=== PATIENT | female | born 1975 | race Hispanic/Latino ===

== ENCOUNTER 2017-05-15 14:25 | Inpatient (IN) | payer MEDICARE ==
[~2017-05-15 14:25] MED LIST: ISOVUE-370 76%-LOCM 1 ML ONE
[2017-05-15 15:04] LABS: #Lymphocytes 1.9 thou/uL (1.20-3.40); #Monocytes 1.1 thou/uL (0.11-0.59); #Neutrophils 10.9 thou/uL (1.40-6.50); %Basophils 0.3 % (0.0-1.0); %Eosinophils 0.2 % (0.0-10.0); %Lymphocytes 13.4 % (21.0-51.0); %Monocytes 8.2 % (0.0-10.0); Hematocrit 39.3 % (36.0-47.0); Mean Platelet Volume 7.7 fL (7.4-10.4); Red Blood Cell (RBC) Count 4.49 mill/uL (4.20-5.40)
[2017-05-15 15:25] LABS: ALT (SGPT) 98 U/L (8-55); AST (SGOT) 88 U/L (5-34); Alkaline Phosphatase 140 U/L (40-150); Anion Gap 13 mmol/L (10-20); BUN (Urea Nitrogen) 9 mg/dL (7.0-18.7); Bilirubin, Total 0.6 mg/dL (0.2-1.2); Calc. Creatinine Clearance 0 mL/min (70-130); Carbon Dioxide 27 mmol/L (22-29); Chloride 96 mmol/L (98-107); Estimated GFR-MDRD 65; Globulin 5.1 g/dL (2.4-3.5); Lipase 5 U/L (8-78); Protein, Total 8.7 g/dL (6.0-8.3)
[2017-05-15 15:57] LABS: Bilirubin Negative (Negative); Blood, Urine Large (Negative); Glucose, Urine (Dipstick) Negative (Negative); Ketone, Urine Negative (Negative); Nitrite Negative (Negative); Protein, Urine (Dipstick) 100 mg/dL (Neg-Trace)
[2017-05-15 15:59] LABS: Bacteria/HPF 4+ HPF (None Seen); Hyaline Casts/LPF 4-6 HYALINE CAST LPF (0-3 Hyaline)
[2017-05-15] MEDS ORDERED: Acetaminophen 500 MG TAB ONE (16:12)
[2017-05-15 16:14] LABS: Lactic Acid - Sepsis 1.3 mmol/L (0.5-2.2)
[2017-05-15 16:15] LABS: Yeast-All Forms None Seen HPF (None Seen)
--- NOTE | 2017-05-15 16:26 | RAD ---
CHEST 1 VIEW: Date: 05/15/17 HISTORY: Urinary tract infection. Fever. FINDINGS: Cardiac silhouette is magnified by projection. Pulmonary vasculature is unremarkable. Mediastinum is midline. There is no confluent air space consolidation or evidence of pneumothorax. layaway clerk l victor manuel overlie the chest. IMPRESSION: No active cardiopulmonary abnormalities are demonstrated. POS: [facility]
--- NOTE | 2017-05-15 17:24 | CT ---
CT BRAIN WITHOUT CONTRAST: Indication: Headache, 42-year-old female. Comparison: 10-14-08 brain MRI. FINDINGS: Re-demonstration of reduced volume of posterior fossa contents, stable to prior exam. No ventriculome darwin or midline shift. There is no acute intracranial hemorrhage or mass effect. Mild mucosal thicken ing is seen within the paranasal sinuses. IMPRESSION: 1. No acute intracranial abnormalities. 2. 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 POS: [facility]
--- NOTE | 2017-05-15 17:59 | CT ---
CT ABDOMEN AND PELVIS WITH CONTRAST: Technique: Multiple axial tomograms were obtained of the abdomen and pelvis with IV enhancement. History: Abdominal pain. Fever. FINDINGS: Lung bases are clear. The liver, spleen, and pancreas are unremarkable. The liver does show low attenuation suggesting fatt y infiltration. Stomach and duodenum unremarkable. Adrenal glands are unremarkable. Review of the urinary tract reveals an edematous left kidney with slight decreased function in the le ft kidney. There is a small cyst superior left kidney measuring approximately 1.0 cm. There is no hyd ronephrosis. The left ureter is mildly prominent, but no evidence of ureteral calculus identified. Th e bladder is only mildly distended and is suboptimally evaluated. There is suggestion of mild bladder wall thickening. Pyelonephritis/cystitis should be considered. Close follow up is recommended. Recom mend correlation with urinalysis. The small bowel loops are normal. Colon is unremarkable. Appendix is unremarkable. Images through the pelvis show unremarkable uterus and adnexa. No evidence of retroperitoneal adenopa thy. There are nonspecific periaortic lymph nodes present. There is a small anterior abdominal wall hernia inferior to the umbilicus in the midline with an abdo candi wall defect in the anterior abdominal wall measuring 2.5 cm width. Mesenteric fat herniates thr ough this defect into the subcutaneous adipose. IMPRESSION: 1. The left kidney is abnormal. The left kidney appears slightly edematous with slight decreased func tion. No evidence of hydronephrosis or urinary tract calculus. There is question of bladder wall thic kening. Consider pyelonephritis and cystitis. Recommend close follow up and urologic consultation. 2. Evidence of a small anterior abdominal wall hernia. 3. Otherwise, no acute intraabdominal process. POS: [facility]
[2017-05-15] MEDS ORDERED: cefTRIAXone\\ROCEPHIN 2 GM in Sodium Chloride 0.9% 100 ML IVPB ONE (18:15)
--- NOTE | 2017-05-15 19:52 | PDOC.EVN ---
Event Note - Event Note Event Note: [id number] h&p dictated 1. Sepsis secondary to UTI 2. UTI 3. Abdominal pain + Nausea an dvomiting 4. H/O Seizures plan: see orders
[2017-05-15] MEDS ORDERED: Ondansetron HCl/PF 4 MG/2 ML Vial IVP PRN (20:08)
[2017-05-15] MEDS ORDERED: Potassium Chloride 20 MEQ TAB PO SCH (20:15)
[2017-05-15] MEDS: Acetaminophen 325 MG TAB PO PRN (21:26)
[2017-05-15] MEDS: Sodium Chloride 0.9% 1,000 ML IV SCH (21:27)
[2017-05-15] MEDS: Heparin 5,000 UNITS/ML VIAL SC SCH (21:27)
[2017-05-16] MEDS: Sodium Chloride 0.9% 1,000 ML IV SCH ×4 (00:44→20:22)
[2017-05-16] MEDS: Piperacillin/Tazobactam 3.375 GM in Sodium Chloride 0.9% 100 ML IVPB SCH ×5 (00:44→23:59)
[2017-05-16 01:49] VITALS: BMI 33.1
[2017-05-16 04:39] LABS: #Eosinphils 0.1 thou/uL (0.0-0.7); #Lymphocytes 1.6 thou/uL (1.20-3.40); #Monocytes 0.9 thou/uL (0.11-0.59); #Neutrophils 7.5 thou/uL (1.40-6.50); %Basophils 0.2 % (0.0-1.0); %Eosinophils 0.5 % (0.0-10.0); %Lymphocytes 15.5 % (21.0-51.0); %Monocytes 9.1 % (0.0-10.0); Hematocrit 32.9 % (36.0-47.0); Red Blood Cell (RBC) Count 3.73 mill/uL (4.20-5.40)
[2017-05-16 04:45] LABS: Anion Gap 8 mmol/L (10-20); BUN (Urea Nitrogen) 9 mg/dL (7.0-18.7); Calc. Creatinine Clearance 118 mL/min (70-130); Calcium 8.3 mg/dL (7.8-10.44); Carbon Dioxide 29 mmol/L (22-29); Chloride 105 mmol/L (98-107); Estimated GFR-MDRD 86
--- NOTE | 2017-05-16 05:40 | HP ---
DATE OF ADMISSION: 05/15/2017 CHIEF COMPLAINT: Abdominal pain, fever, chills, headache, body aches. HISTORY OF PRESENT ILLNESS: The patient is a 42-year-old female, started having abdominal pain in th e umbilical region, constant, /, currently 6/10, improves with some pain medication, associated wi th some nausea and vomiting also. Complains of fever, chills, headache and body aches for the past 2 days. Symptoms started on Monday. Symptoms persisted, so she came to the ER. Denies any dysuria. Denies any increased frequency of micturition. Denies any hematuria. Complains of intermittent diz ziness also with headache. Denies chest pain, denies any palpitations, denies any cough, denies sput um production. PAST MEDICAL HISTORY: Seizure disorder, hyperlipidemia. PAST SURGICAL HISTORY: . 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 SOCIAL HISTORY: Denies smoking, denies alcohol, denies any drugs. FAMILY HISTORY: Denies any heart problems. REVIEW OF SYSTEMS: Constitutional: Positive for fever, chills, headache. Eyes: Denies any vision problems. Ears: Denies any hearing loss. Neck: Denies any neck pain. Cardiovascular system: Den ies any chest pain. Denies any palpitations. Respiratory system: Denies any cough. Denies any spu jose production. Gastrointestinal: Positive for abdominal pain. Positive for nausea, vomiting. Business Unit Leader nial nerve system: Positive for dizziness. Psychiatric: Denies depression or anxiety. Integumenta ry: Denies any rash. Musculoskeletal: Denies any joint deformities. All other review of systems a re reviewed and are negative. PHYSICAL EXAMINATION: CONSTITUTIONAL/VITAL SIGNS: At the time of H&P performed, blood pressure is 110/70, pulse ox 97%, he art rate 78. GENERAL APPEARANCE: The patient appears comfortable. HEENT: Pupils are equal, round, and reactive light. Anterior nares patent. Nose normal. Ears norm al. Teeth intact. Tongue is moist. NECK: Supple, no JVD. CARDIOVASCULAR SYSTEM: S1, S2 present. Regular rate and rhythm. No murmurs, no rubs, no gallops. RESPIRATORY SYSTEM: No wheezing, no rhonchi. Breath sounds bilaterally. GASTROINTESTINAL: Abdomen is soft, nontender, no guarding, no organomegaly, no masses felt. MUSCULOSKELETAL: No edema. CRANIAL NERVE SYSTEM: Awake, follows commands. Strength intact, sensory intact. GENITOURINARY: No suprapubic tenderness, no flank tenderness. INTEGUMENTARY: No obvious rashes seen. PSYCHIATRIC: Mood is appropriate at this time. LABORATORY DATA: At the time of H&P performed urine specific gravity is 1.018, leukocyte esterase pr esent, greater than 50, numerous wbcs, 4+ bacteria. BMP showed sodium 133, potassium 3.6, chloride 9 6, CO2 of 27, BUN of 9, creatinine 0.95. White count 14, hemoglobin 12.9, platelet count is 238. CT abdomen and pelvis, positive left kidney is abnormal, appears edematous, need to rule out pyelonephr itis, small abdominal wall hernia. CT head, no acute disease seen. Positive for congenital va riant seen. IMPRESSION AND PLAN: The patient is a 42-year-old female. 1. Seizures. Continue antiepileptics. 2. Sepsis secondary to urinary tract infection. Plan to start the patient on broad spectrum antibio tics. Plan to monitor the patient closely. Plan to send urine culture and sensitivity and also bloo d cultures. We will follow the patient. 3. Urinary tract infection. Plan to start the patient on broad spectrum antibiotics. Plan to send urine culture and sensitivity. We will follow the patient. 4. History of hyperlipidemia. Continue home medications. 5. Abdominal pain, nausea, vomiting. P.r.n. pain medications, p.r.n. antiemetics. The case was discussed in detail with the patient.
[2017-05-16] MEDS ORDERED: FLU VACC QS2017-18 36 mo. & older 0.5 ML SYRINGE IM ONE (09:00)
[2017-05-16] MEDS: levETIRAcetam 500 MG TAB PO SCH ×2 (09:01→20:22)
[2017-05-16] MEDS: Heparin 5,000 UNITS/ML VIAL SC SCH ×3 (09:09→20:22)
--- NOTE | 2017-05-16 13:04 | PDOC.PN ---
- Subjective Encounter Start Date: 05/16/17 Encounter Start Time: 09:25 -: old records requested/rev Patient seen and examined. No new complaints. No overnight events - Objective MAR Reviewed: Yes Vital Signs & Weight: Vital Signs (12 hours) Temp Pulse Resp BP Pulse Ox 05/16/17 08:00 99.7 F H 81 16 103/68 96 05/16/17 03:22 98.7 F 82 20 96 I&O: 05/15/17 05/16/17 05/17/17 06:59 06:59 06:59 Intake Total 180 Balance 180 Result Diagrams: 05/16/17 04:08 05/16/17 04:08 Phys Exam - Physical Examination Constitutional: NAD HEENT: PERRLA, moist MMs, sclera anicteric Neck: no JVD, supple Respiratory: no wheezing, no rales, no rhonchi Cardiovascular: RRR, no significant murmur, no rub Gastrointestinal: soft, non-tender, no distention, positive bowel sounds Musculoskeletal: no edema, pulses present Neurological: non-focal, normal sensation Psychiatric: normal affect, A&O x 3 Skin: no rash, normal turgor Dx/Plan (1) Acute cystitis Code(s): N30.00 - ACUTE CYSTITIS WITHOUT HEMATURIA Status: Acute (2) Acute pyelonephritis Code(s): N10 - ACUTE PYELONEPHRITIS Status: Acute (3) Dehydration Code(s): E86.0 - DEHYDRATION Status: Acute (4) Sepsis Code(s): A41.9 - SEPSIS, UNSPECIFIED ORGANISM Status: Acute (5) Anemia, normocytic normochromic Code(s): D64.9 - ANEMIA, UNSPECIFIED Status: Chronic (6) Hypothyroidism Code(s): E03.9 - HYPOTHYROIDISM, UNSPECIFIED Status: Chronic (7) Obesity (BMI 30.0-34.9) Code(s): E66.9 - OBESITY, UNSPECIFIED Status: Chronic (8) Seizure disorder Code(s): G40.909 - EPILEPSY, UNSP, NOT INTRACTABLE, WITHOUT STATUS EPILEPTICUS Status: Chronic - Plan cont current plan of care, plan discussed w/ family, continue antibiotics * continue iv antibiotics as per below * continue IVF * medication reviewed as below * symptomatic treatment * follow culture * pt is improving. Review of Systems - Review of Systems ENT: negative: Ear Pain, Ear Discharge, Nose Pain, Nose Discharge, Nose Congestion, Mouth Pain, Mouth Swelling, Throat Pain, Throat Swelling, Other Respiratory: negative: Cough, Dry, Shortness of Breath, Hemoptysis, SOB with Excertion, Pleuritic Pain, Sputum, Wheezing Cardiovascular: negative: Chest Pain, Palpitations, Orthopnea, Paroxysmal Noc. Dyspnea, Edema, Light Headedness, Other Gastrointestinal: negative: Nausea, Vomiting, Abdominal Pain, Diarrhea, Constipation, Melena, Hematochezia, Other Genitourinary: negative: Dysuria, Frequency, Incontinence, Hematuria, Retention , Other Musculoskeletal: negative: Neck Pain, Shoulder Pain, Arm Pain, Back Pain, Hand Pain, Leg Pain, Foot Pain, Other Skin: negative: Rash, Lesions, Clarence, Bruising, Other - Medications/Allergies Allergies/Adverse Reactions: Allergies Allergy/AdvReac Type Severity Reaction Status Date / Time No Known Allergies Allergy Verified 05/15/17 21:35 Medications: Current Medications Acetaminophen (Tylenol) 650 mg PO Q4H PRN PRN Reason: Headache/Fever or Pain Last Admin: 05/15/17 21:26 Dose: 650 mg Heparin Sodium (Porcine) (Heparin) 5,000 units SC TID [facility] Last Admin: 05/16/17 09:09 Dose: 5,000 units Sodium Chloride (Normal Saline 0.9%) 1,000 mls @ 150 mls/hr IV .Q6H40M [facility] Last Admin: 05/16/17 09:04 Dose: 1,000 mls Piperacillin Sod/Tazobactam (Sod 3.375 gm/ Sodium Chloride) 100 mls @ 200 mls/ hr IVPB Q6HR [facility] Last Admin: 05/16/17 12:49 Dose: 100 mls Levofloxacin 500 mg/ Device 100 mls @ 100 mls/hr IVPB Q24HR [facility] Levetiracetam (Keppra) 500 mg PO BID [facility] Last Admin: 05/16/17 09:01 Dose: 500 mg Levothyroxine Sodium (Synthroid) 50 mcg PO 0600 [facility] Ondansetron HCl (Zofran) 4 mg IVP Q6H PRN PRN Reason: Nausea/Vomiting Sodium Chloride (Flush - Normal Saline) 10 ml IVF PRN PRN PRN Reason: Saline Flush
[2017-05-16] MEDS: Acetaminophen 325 MG TAB PO PRN (13:49)
--- NOTE | 2017-05-16 16:29 | CON ---
DATE OF CONSULTATION: 05/16/2017 REFERRING: Hospitalist for pyelonephritis. HISTORY OF PRESENT ILLNESS: Ms. Sanchez is a 42-year-old female, who presented to the emergency room on advice of her primary care physician as she had symptoms of myalgia, headaches, periumbilical abdominal discomfort. The patient states that she came back from [place], early April had symptoms of local cystitis, dysuria, urgency. This was not treated, subsequently due to systemic symptoms of myalgia, abdominal vague discomfort, presented to the emergency room. Family at bedside as patient is non-Belarusian speaking. History of fever at home of 101, 102, on presentation to the emergency room, no significant fever, currently she is 99.7. With IV antibiotics and fluid, she states that she is feeling significantly better with no nausea, vomiting, dysuria. She denies prior history of kidney stones, history of recurrent UTI denied. PAST MEDICAL HISTORY: Seizure disorder and hyperlipidemia. PAST SURGICAL HISTORY: . 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 REVIEW OF SYSTEMS: Ten point review of systems as above. PHYSICAL EXAMINATION: Currently, VITAL SIGNS: T-max is 99.7, 81, 16, 96, 103/68. HEENT: Grossly unremarkable. HEART: Regular rate. LUNGS: Clear. ABDOMEN: Obese, protuberant, nontender, nondistended. No CVA tenderness is appreciated. GENITOURINARY: Demonstrates no significant pelvic prolapse, no discharge, no masses appreciated. EXTREMITIES: No cyanosis, clubbing or edema. NEUROLOGIC: No gross focal deficits. PSYCHIATRIC: Appears to be appropriate. PERTINENT LABORATORY AND IMAGING DATA: 1. CT of the abdomen with contrast demonstrates left kidney is slightly edematous. There is no gross evidence of hydronephrosis, ureteral renal calculi , questionable bladder wall thickening consistent with pyelonephritis and cystitis. 2. Small anterior abdominal wall hernia. No other acute process. 3. Small incidental left upper pole renal cyst with no significant enhancement. PERTINENT LABORATORY DATA: White count on admission 14, currently is 10; hemoglobin 10, platelet 196, creatinine 0.74. LFTs are slightly elevated, most likely reactive, normal lactic acid of 1.3, blood culture is negative. Urinalysis 100 protein, large blood, moderate leukocytes, 7-10 rbcs, greater than 50 wbcs, 7-10 epithelial cells, 4+ bacteria, negative nitrites. I did call the lab myself demonstrating a urine culture is growing greater than 100, 000 CFUs of E. coli, sensitivity is yet pending. IMPRESSION/PLAN: Ms. Sanchez is a 42-year-old female, , with no prior history of urinary tract infection, pyelonephritis, presents with left pyelonephritis. She has significantly improved and clinical picture with fluids and IV antibiotics. I do recommend Levaquin adjunct until final sensitivity is finalized. If it is sensitive to quinolones, recommend Levaquin or ciprofloxacin for a course of a minimum of 2-3 weeks due to pyelonephritis. She is provided an elective with me in May, appointment in chart. Repeat imaging would be warranted if persistent fever despite appropriate antibiotic regimen greater than 48 hours. Discharge when sensitivity final with appropriate antibiotics. ERIN
[2017-05-17] MEDS ORDERED: Diabetic Tussin 200 MG/10 ML UDCUP PO PRN (01:06)
[2017-05-17] MEDS: Sodium Chloride 0.9% 1,000 ML IV SCH ×2 (04:44→07:49)
[2017-05-17] MEDS: Acetaminophen 325 MG TAB PO PRN (04:49)
[2017-05-17] MEDS: Piperacillin/Tazobactam 3.375 GM in Sodium Chloride 0.9% 100 ML IVPB SCH (05:00)
[2017-05-17] MEDS ORDERED: Levothyroxine Sodium 50 MCG TAB PO SCH (06:00)
[2017-05-17] MEDS: levETIRAcetam 500 MG TAB PO SCH (07:45)
[2017-05-17] MEDS: Heparin 5,000 UNITS/ML VIAL SC SCH (07:46)
[2017-05-17 08:01] VITALS: BP 92/60; TEMP 97.9
--- NOTE | 2017-05-17 12:38 | PDOC.PN ---
- Subjective Encounter Start Date: 05/17/17 Encounter Start Time: 10:00 Patient seen and examined. No new complaints. No overnight events - Objective MAR Reviewed: Yes Vital Signs & Weight: Vital Signs (12 hours) Temp Pulse Resp BP Pulse Ox 05/17/17 08:00 97.9 F 71 16 92/60 96 05/17/17 04:00 98.7 F 65 18 113/73 95 I&O: 05/16/17 05/17/17 05/18/17 06:59 06:59 06:59 Intake Total 2720 Balance 2720 Result Diagrams: 05/16/17 04:08 05/16/17 04:08 Phys Exam - Physical Examination Constitutional: NAD HEENT: PERRLA, moist MMs, sclera anicteric Neck: no JVD, supple Respiratory: no wheezing, no rales, no rhonchi Cardiovascular: RRR, no significant murmur, no rub Gastrointestinal: soft, non-tender, no distention, positive bowel sounds Musculoskeletal: no edema, pulses present Neurological: non-focal, normal sensation, moves all 4 limbs Lymphatic: no nodes Psychiatric: normal affect, A&O x 3 Skin: no rash, normal turgor Dx/Plan (1) Acute cystitis Code(s): N30.00 - ACUTE CYSTITIS WITHOUT HEMATURIA Status: Acute (2) Acute pyelonephritis Code(s): N10 - ACUTE PYELONEPHRITIS Status: Acute (3) Dehydration Code(s): E86.0 - DEHYDRATION Status: Acute (4) Sepsis Code(s): A41.9 - SEPSIS, UNSPECIFIED ORGANISM Status: Acute (5) Anemia, normocytic normochromic Code(s): D64.9 - ANEMIA, UNSPECIFIED Status: Chronic (6) Hypothyroidism Code(s): E03.9 - HYPOTHYROIDISM, UNSPECIFIED Status: Chronic (7) Obesity (BMI 30.0-34.9) Code(s): E66.9 - OBESITY, UNSPECIFIED Status: Chronic (8) Seizure disorder Code(s): G40.909 - EPILEPSY, UNSP, NOT INTRACTABLE, WITHOUT STATUS EPILEPTICUS Status: Chronic - Plan cont current plan of care, continue antibiotics * medication reviewed as below * symptomatic treatment * cipro * see discharge summery. Review of Systems - Review of Systems ENT: negative: Ear Pain, Ear Discharge, Nose Pain, Nose Discharge, Nose Congestion, Mouth Pain, Mouth Swelling, Throat Pain, Throat Swelling, Other Respiratory: negative: Cough, Dry, Shortness of Breath, Hemoptysis, SOB with Excertion, Pleuritic Pain, Sputum, Wheezing Cardiovascular: negative: Chest Pain, Palpitations, Orthopnea, Paroxysmal Noc. Dyspnea, Edema, Light Headedness, Other Gastrointestinal: negative: Nausea, Vomiting, Abdominal Pain, Diarrhea, Constipation, Melena, Hematochezia, Other Genitourinary: negative: Dysuria, Frequency, Incontinence, Hematuria, Retention , Other Musculoskeletal: negative: Neck Pain, Shoulder Pain, Arm Pain, Back Pain, Hand Pain, Leg Pain, Foot Pain, Other - Medications/Allergies Allergies/Adverse Reactions: Allergies Allergy/AdvReac Type Severity Reaction Status Date / Time No Known Allergies Allergy Verified 05/15/17 21:35
--- NOTE | 2017-05-17 13:44 | DIS ---
DATE OF ADMISSION: 05/15/2017 DATE OF DISCHARGE: 05/17/2017 PRIMARY CARE PHYSICIAN: Thompson Higginbotham M.D. DISCHARGE DISPOSITION: Home. PRIMARY DISCHARGE DIAGNOSES: 1. Acute cystitis and acute pyelonephritis. 2. Dehydration. 3. Sepsis. SECONDARY DISCHARGE DIAGNOSES: Chronic normocytic anemia, hypothyroidism, obesity with body mass ind ex 33, and seizure disorder. PRIMARY PROCEDURE/OPERATION: None. RADIOLOGICAL INVESTIGATION: Chest x-ray normal. Abdomen and pelvis CT scan showed left kidney was e dematous and cystitis. CT brain was negative for any acute intracranial process. SIGNIFICANT LABORATORY DATA: WBC 10.0, hemoglobin 10.7, platelets 196. Sodium 138, potassium 3.8, B UN 9, creatinine 0.74, and calcium 8.3. Urinalysis suggestive of UTI. Urine culture grew E. coli. Blood culture negative and influenza negative. DISCHARGE MEDICATIONS: Ciprofloxacin 500 mg p.o. b.i.d. for 15 days, Keppra 500 mg p.o. b.i.d., Synt hroid 50 mcg p.o. daily. CONTRAINDICATIONS: None. CODE STATUS: FULL CODE. INPATIENT DESKTOP SUPPORT MANAGER: Dr. Gale Moscoso was consulted while in hospital. TEST RESULTS PENDING ON DISCHARGE: None. ALLERGIES: No known drug allergy. DISCHARGE PLAN: Post hospital, patient has appointment with Dr. Gale Moscoso on 06/02/2017. Davin ferreira will follow up with Dr. Thompson Higginbotham as instructed. HOSPITAL COURSE: A 42-year-old female with above-mentioned medical problem who was admitted by Dr. Banegas, please see his H&P for further details. The patient was admitted to the hospital f or fever, chills, headache, body ache and left-sided flank pain. Her urinalysis was suggestive of UT I. She had CT abdomen and pelvis which showed left-sided kidney swelling. She was initially dehydra wayne. She also had mild LFT abnormalities. She was meeting sepsis criteria on admission. She was gi stacey IV fluid and she was treated with IV antibiotic therapy with Levaquin and Zosyn. On discharge ba sed on culture and sensitivity result, we changed to ciprofloxacin. Patient will continue all her ho me medications. While in hospital, she remained afebrile. She did not have any further flank pain. We consulted Urology and Urology also recommended outpatient followup. The patient is seen and examined at bedside today. Please see my progress note from today for furthe r details.
== END 2017-05-17 12:18 | disposition home or self-care (01) | DRG 872 ==
LOC: ERS 14:25 → T4-A 20:29
PROVIDERS: ADMIT Emergency Medicine; ATTEND Emergency Medicine
DX: A41.9 Sepsis, unspecified organism (principal); N10 Acute pyelonephritis; N30.00 Acute cystitis without hematuria; E86.0 Dehydration; D64.9 Anemia, unspecified; E03.9 Hypothyroidism, unspecified; E66.9 Obesity, unspecified; Z68.39 Body mass index [BMI] 39.0-39.9, adult; G40.909 Epilepsy, unspecified, not intractable, without status epilepticus; E78.5 Hyperlipidemia, unspecified
CPT/HCPCS: 36415; 70450; 71010; 74177; 80048; 80053; 81003; 81015; 81025; 83605; 83690; 84703; 85025; 87040; 87077; 87086; 87186; 90471; 90682; 96361; 96365; G0008; J0696; J1644; J1956; J2543; J7050; Q2036

== ENCOUNTER 2017-12-15 13:07 | Outpatient (CLI) | payer MEDICARE, MEDICAID ==
--- NOTE | 2017-12-15 14:51 | ULT ---
BILATERAL RENAL ULTRASOUND: Date: 12/15/17 HISTORY: Micturition frequency. COMPARISON: None. FINDINGS: The right kidney measures 11.4 x 4.5 x 5.3 cm. The left kidney measures 10.5 x 5 x 4.5 cm. Pre-void u rinary bladder volume is 210 mL> Bilateral ureteral jets are seen. Urinary bladder is unremarkable. IMPRESSION: No evidence of obstructive uropathy. POS: [facility]
== END 2017-12-15 13:08 | disposition home or self-care (01) ==
LOC: ULT 13:07
PROVIDERS: ATTEND Urology
DX: R35.0 Frequency of micturition (principal); Z87.448 Personal history of other diseases of urinary system
CPT/HCPCS: 36415; 76770; 80048; 81001; 87086

== ENCOUNTER 2018-11-12 16:23 | Inpatient (IN) | payer MEDICARE, OTHER ==
[2018-11-12 16:57] LABS: #Lymphocytes 2.8 thou/uL (1.20-3.40); #Monocytes 1.4 thou/uL (0.11-0.59); #Neutrophils 10.7 thou/uL (1.40-6.50); %Basophils 0.2 % (0.0-1.0); %Eosinophils 0.3 % (0.0-10.0); %Lymphocytes 18.8 % (21.0-51.0); %Monocytes 9.1 % (0.0-10.0); %Neutrophils 71.6 % (42.0-75.0); Hemoglobin 11.4 g/dL (12.0-16.0); Mean Corpuscular Hemoglobin 23.6 pg (27.0-31.0); Mean Corpuscular Volume 73.7 fL (78.0-98.0); Mean Platelet Volume 9.2 fL (7.4-10.4); Platelet Count 288 thou/uL (130-400); RBC Distribution Width 17.4 % (11.5-14.5); Red Blood Cell (RBC) Count 4.82 mill/uL (4.20-5.40); White Blood Cell (WBC) Count 14.9 thou/uL (4.8-10.8)
[2018-11-12 16:58] LABS: Bilirubin Negative (Negative); Blood, Urine Large (Negative); Clarity CLOUDY (Clear); Glucose, Urine (Dipstick) Negative (Negative); Leukocyte Large (Negative); Nitrite Positive (Negative); Protein, Urine (Dipstick) 30 mg/dL (Neg-Trace); Specific Gravity, Urine 1.018 (1.002-1.036); Urobilinogen 0.2 mg/dL (0.2-1.0); pH, Urine 5.5 (5.0-9.0)
[2018-11-12 17:00] LABS: Bacteria/HPF 4+ HPF (None Seen); Hyaline Casts/LPF 0-3 HYALINE CAST LPF (0-3 Hyaline); Pathc Cast-AUWi Flag 0.95 (0-2.49); RBC/HPF GREATER THAN 50-TNTC HPF (0-3)
[2018-11-12] MEDS ORDERED: Acetaminophen 500 MG TAB ONE (17:00)
[2018-11-12 17:04] LABS: Pregnancy Test - Urine (BHCG) Negative (Negative); Pregu Control Background? CLEAR/WHITE (CLR/WHITE); Pregu Control Bar Appear? YES (CONTROL BAR); Specific Gravity 1.018 (1.002-1.036)
[2018-11-12 17:18] LABS: ALT (SGPT) 29 U/L (8-55); AST (SGOT) 25 U/L (5-34); Albumin 4.4 g/dL (3.5-5.0); Alkaline Phosphatase 105 U/L (40-150); Anion Gap 15 mmol/L (10-20); BUN (Urea Nitrogen) 12 mg/dL (7.0-18.7); Bilirubin, Total 0.5 mg/dL (0.2-1.2); Calc. Creatinine Clearance 0 mL/min (70-130); Calcium 9.5 mg/dL (7.8-10.44); Carbon Dioxide 24 mmol/L (22-29); Chloride 100 mmol/L (98-107); Estimated GFR-MDRD 90; Globulin 5.1 g/dL (2.4-3.5); Glucose 111 mg/dL (70-105); Potassium 3.4 mmol/L (3.5-5.1); Protein, Total 9.5 g/dL (6.0-8.3); Sodium 136 mmol/L (136-145)
[2018-11-12 17:26] LABS: Anisocytosis SLIGHT = 6-15 cells (100X) (0-5/hpf); Hypochromia SLIGHT = 6-15 cells (100X) (0-5/hpf); MDiff Complete? YES; Microcytosis SLIGHT = 6-15 cells (100X) (0-5/hpf); Platelet Morphology Comment Appears Adequate; Polychromasia SLIGHT = 2-3 cells (100X) (0-2/hpf)
--- NOTE | 2018-11-12 17:33 | CT ---
CT abdomen noncontrast CT pelvis noncontrast: (Urolithiasis protocol) DATE: 11/12/2018 HISTORY: 43-year-old female with bilateral flank pain and fever TECHNIQUE: IV injection of iodinated contrast media: None Oral contrast media: None FINDINGS: Other than for urolithiasis, the lack of IV and oral contrast limits the evaluation. Liver: No contour abnormalities. Diffusely low attenuation consistent with fatty liver. Spleen: No splenomegaly. Pancreas: No contour abnormalities. Adrenals: No mass. Kidneys: No nephrolithiasis or overt hydronephrosis. Ureters: No calculi. Bladder: No calculi. Abdominal aorta: No aneurysm. Small bowel: No dilation. Colon: No adjacent fat stranding. Appendix: No dilation or adjacent fat stranding. Free air: None Free fluid: None Retroperitoneum: Large number of slightly enlarged retroperitoneal lymph nodes and some mesenteric. T his is similar to 05/15/2017, and is nonspecific.. IMPRESSION: 1. No urolithiasis or obstructive uropathy. 2. Hepatic steatosis. 3. Mild retroperitoneal lymphadenopathy, unchanged since 05/15/2017.
[2018-11-12] MEDS ORDERED: Sodium Chloride 0.9% 100 ML ONE (17:39)
[2018-11-12] MEDS ORDERED: cefTRIAXone\\ROCEPHIN 2 GM VIAL ONE (17:39)
[2018-11-12] MEDS ORDERED: Bisacodyl 10 MG SUPP PR PRN (18:27)
[2018-11-12] MEDS ORDERED: Acetaminophen 650 MG Suppository PR PRN (18:27)
--- NOTE | 2018-11-12 19:08 | HP ---
PRIMARY CARE PROVIDER: Thompson Higginbotham MD CHIEF COMPLAINT: Fever. HISTORY OF PRESENT ILLNESS: Ms. Sanchez is a pleasant 43-year-old lady who was seen at [facility] on November 12, 2018. She was hospitalized at this facility from May 15 through May 17 in 2017 for acute cystitis and acute pyelonephritis and sepsis. She reports that she was doing well until 2 days ago. At that time, she started having pain over her abdomen. She describes pain across both sides of her lower back. She is unable to characterize the pain further. She also reports that the pain is radiating to her thighs. On further questioning, it also appears that she may have had generalized body aches. She reports generalized weakness. She reports lightheadedness. She denies dysuria or increased frequency of urination. She went to her primary care provider's office and was advised to go to the emergency room for further management. REVIEW OF SYSTEMS: All other systems reviewed and found to be negative. PAST MEDICAL HISTORY: Anemia, epilepsy, pyelonephritis, and cystitis. PAST SURGICAL HISTORY: section x1. FAMILY HISTORY: Significant for diabetes mellitus. SOCIAL HISTORY: The patient denies tobacco use, alcohol use, or recreational drug use. ALLERGIES: NO KNOWN DRUG ALLERGIES. CURRENT MEDICATIONS: None. PHYSICAL EXAMINATION: GENERAL: On examination, Ms. Sanchez is awake and alert, not in acute distress. VITAL SIGNS: Blood pressure is 134/61, pulse 91, respiratory rate 26, and oxygen saturation 98% on room air. T-max in the emergency room was 101.3 degrees Fahrenheit. When she initially presented to the emergency room, she had a pulse of 103. EYES: No scleral icterus. No conjunctival pallor. ENT: Dry mucosal membranes. No oropharyngeal erythema or exudates. NECK: Supple, nontender. Trachea is midline. RESPIRATORY: Accessory muscles of breathing are not active. Chest wall movements are symmetric bilaterally. Lungs are clear to auscultation without wheeze, rhonchi, or crepitations. CARDIOVASCULAR: S1 and S2 are heard, regular. Peripheral pulses palpable. No carotid bruit. No pericardial rub. ABDOMEN: Soft. She has bilateral costovertebral angle tenderness. Bowel sounds are heard. NEUROLOGIC: Cranial nerves 2 through 12 are intact. MUSCULOSKELETAL: Power is 5/5 in all 4 extremities. SKIN: No rashes or subcutaneous nodules. LYMPHATIC: No cervical lymphadenopathy. PSYCHIATRIC: Normal mood, normal affect. The patient is oriented to person, place, and time. LABORATORY DATA: Ms. Sanchez's labs and investigations were reviewed. She had a CT scan of the abdomen and pelvis, renal stone protocol, which did not show any urolithiasis or obstructive uropathy. She had hepatic steatosis, mild retroperitoneal lymphadenopathy, unchanged since May 15, 2017. She has leukocytosis with 14,900 white cells, of which 10,700 are neutrophils. She has microcytic anemia with hemoglobin of 11.4, normal platelet count, normal sodium, decreased potassium of 3.4, normal creatinine, unremarkable liver profile. Urinalysis is positive for nitrite and large amount of leukocyte esterase. test is negative. ASSESSMENT AND PLAN: Ms. Sanchez is a pleasant 43-year-old lady who was seen at [facility] on November 12, 2018. Her problem list includes: 1. Sepsis: Ms. Sanchez is presenting with sepsis, most likely secondary to urinary tract infection and probable pyelonephritis. She will be admitted to the hospital for further management. 2. Urinary tract infection: The patient has received vancomycin and ceftriaxone in the emergency room. I will continue vancomycin and initiate meropenem to cover extended-spectrum beta-lactamases positive organisms until culture reports are available. Further management depending on how she does with her antibiotics. We will also check renal ultrasound to rule out pyelonephritis or perinephric abscess. 3. Hypokalemia: Replace potassium and recheck. Many thanks for allowing me to participate in your patient's care. Please feel free to contact me with any questions or concerns. LEVEL OF RISK: Moderate. LEVEL OF COMPLEXITY: Moderate. Job ID: [id number]
[2018-11-12] MEDS ORDERED: MEROPENEM 1 GM/50 ML 1 GM in Premix Bag 1 BAG IVPB SCH (20:00)
--- NOTE | 2018-11-12 20:03 | ULT ---
Renal ultrasound. HISTORY: Pyelonephritis. TECHNIQUE: Multiple longitudinal and transverse images of the kidneys and bladder is obtained using multi hertz curvilinear transducer. Real-time color flow images obtained. FINDINGS: The right kidney measures 12.3 and left kidney 11.7 cm from pole to pole. No evidence of renal parenc hymal masses or lesions seen. No evidence of hydronephrosis seen. The urinary bladder is visualized with prevoid bladder 3 dimension volume of 127 mL. IMPRESSION: Unremarkable renal ultrasound. Transcribed Date/Time: 11/12/2018 8:41 PM
[2018-11-12] MEDS ORDERED: HYDROcodone/Acetaminophen 5/325 mg Tablet PO PRN (20:36)
[2018-11-12] MEDS ORDERED: Sodium Chloride 0.9% 1,000 ML IV SCH (20:36)
[2018-11-12] MEDS ORDERED: Ondansetron PF 4 MG/2 ML Vial IVP PRN (20:36)
[2018-11-12] MEDS ORDERED: Ondansetron ODT 4 MG TAB SL PRN (20:36)
[2018-11-12] MEDS: HYDROcodone/Acetaminophen 5/325 mg Tablet PO PRN (20:57)
[2018-11-12] MEDS: NS 0.9% w/ 20 MEQ KCL 1,000 ML/1,000 ML BAG IV SCH (20:58)
[2018-11-12 21:08] VITALS: BMI 33.7
[2018-11-13] MEDS: Vancomycin HCl 1.25 GM in Sodium Chloride 0.9% 250 ML 250 ML IVPB SCH ×2 (03:59→18:39)
[2018-11-13] MEDS: HYDROcodone/Acetaminophen 5/325 mg Tablet PO PRN (04:04)
[2018-11-13 04:27] LABS: #Eosinphils 0.1 thou/uL (0.0-0.7); #Lymphocytes 1.7 thou/uL (1.20-3.40); #Monocytes 0.6 thou/uL (0.11-0.59); #Neutrophils 7.4 thou/uL (1.40-6.50); %Basophils 0.5 % (0.0-1.0); %Eosinophils 0.6 % (0.0-10.0); %Lymphocytes 17.6 % (21.0-51.0); %Monocytes 6.1 % (0.0-10.0); %Neutrophils 75.2 % (42.0-75.0); Hemoglobin 10.5 g/dL (12.0-16.0); Mean Corpuscular HGB CONC 31.6 g/dL (32.0-36.0); Mean Corpuscular Hemoglobin 23.6 pg (27.0-31.0); Mean Corpuscular Volume 74.8 fL (78.0-98.0); Mean Platelet Volume 8.6 fL (7.4-10.4); Platelet Count 249 thou/uL (130-400); RBC Distribution Width 17.2 % (11.5-14.5); Red Blood Cell (RBC) Count 4.45 mill/uL (4.20-5.40); White Blood Cell (WBC) Count 9.9 thou/uL (4.8-10.8)
[2018-11-13 04:45] LABS: Anion Gap 11 mmol/L (10-20); BUN (Urea Nitrogen) 10 mg/dL (7.0-18.7); Calc. Creatinine Clearance 133 mL/min (70-130); Calcium 8.4 mg/dL (7.8-10.44); Carbon Dioxide 23 mmol/L (22-29); Chloride 108 mmol/L (98-107); Estimated GFR-MDRD Greater than 90; Glucose 110 mg/dL (70-105); Potassium 3.7 mmol/L (3.5-5.1); Sodium 138 mmol/L (136-145)
[2018-11-13] MEDS: MEROPENEM 1 GM/50 ML 1 GM in Premix Bag 1 BAG IVPB SCH ×3 (06:05→21:51)
[2018-11-13] MEDS ORDERED: diphenhydrAMINE 25 MG CAP PO PRN (06:20)
[2018-11-13] MEDS ORDERED: diphenhydrAMINE 25 MG CAP PO SCH (06:30)
[2018-11-13] MEDS: NS 0.9% w/ 20 MEQ KCL 1,000 ML/1,000 ML BAG IV SCH ×2 (09:20→20:07)
[2018-11-13] MEDS: Enoxaparin Sodium 40 MG/0.4 ML SYRINGE SC SCH (09:22)
[2018-11-13] MEDS ORDERED: levETIRAcetam 500 MG TAB PO SCH (10:45)
[2018-11-13] MEDS: Acetaminophen 325 MG TAB PO PRN ×2 (12:10→20:08)
[2018-11-13] MEDS: Ondansetron PF 4 MG/2 ML Vial IVP PRN ×2 (12:11→20:08)
--- NOTE | 2018-11-13 17:10 | PDOC.PN ---
- Subjective Encounter Start Date: 11/13/18 Encounter Start Time: 08:40 Pt seen for followup re: sepsis. Feels slightly better. Still has fevers. - Objective MAR Reviewed: Yes Vital Signs & Weight: Vital Signs (12 hours) Temp Pulse Resp BP Pulse Ox 11/13/18 11:55 98.2 F 78 18 120/76 92 L 11/13/18 08:00 90 L 11/13/18 07:36 97.7 F 74 17 108/63 90 L Weight Weight 172 lb 11.2 oz Result Diagrams: 11/13/18 04:17 11/13/18 04:17 Additional Labs: Labs reviewed by me Phys Exam - Physical Examination Obese HEENT: moist MMs, sclera anicteric, oral pharynx no lesions, 2+ tonsils Neck: no nodes, no JVD, supple, full ROM Respiratory: clear to auscultation bilateral Cardiovascular: RRR, no rub S1, S2 Gastrointestinal: soft, non-tender, no distention, positive bowel sounds Neurological: moves all 4 limbs Psychiatric: normal affect, A&O x 3 Dx/Plan (1) Sepsis Code(s): A41.9 - SEPSIS, UNSPECIFIED ORGANISM Status: Acute Comment: sepsis due to UTI (2) UTI (urinary tract infection) Status: Acute Comment: utine cultures growing gram negative eleni, continue IV meropenem and vancomycin (3) Hypothyroidism Code(s): E03.9 - HYPOTHYROIDISM, UNSPECIFIED Status: Chronic Comment: continue synthroid (4) Seizure disorder Code(s): G40.909 - EPILEPSY, UNSP, NOT INTRACTABLE, WITHOUT STATUS EPILEPTICUS Status: Chronic Comment: continue keppra - Plan continue antibiotics, out of bed/ambulate * . Review of Systems - Review of Systems Constitutional: fever. negative: chills, sweats, weakness, malaise Respiratory: negative: Cough, Shortness of Breath, SOB with Excertion, Pleuritic Pain, Wheezing Cardiovascular: negative: chest pain, palpitations, orthopnea, paroxysmal nocturnal dyspnea, edema, light headedness Gastrointestinal: Nausea, Abdominal Pain. negative: Vomiting, Diarrhea, Constipation, Melena, Hematochezia Genitourinary: negative: Dysuria, Frequency, Incontinence, Hematuria, Retention Skin: negative: Rash, Lesions, Clarence, Bruising - Medications/Allergies Allergies/Adverse Reactions: Allergies Allergy/AdvReac Type Severity Reaction Status Date / Time No Known Allergies Allergy Verified 11/12/18 20:36 Medications: Current Medications Acetaminophen (Tylenol) 650 mg PO Q4H PRN PRN Reason: Headache/Fever/Mild Pain (1-3) Last Admin: 11/13/18 12:10 Dose: 650 mg Acetaminophen (Tylenol) 650 mg LA Q4H PRN PRN Reason: Headache/Fever/Mild Pain (1-3) Bisacodyl (Dulcolax) 10 mg LA DAILYPRN PRN PRN Reason: Constipation Diphenhydramine HCl (Benadryl) 25 mg PO Q6H PRN PRN Reason: Itching & Insomnia Enoxaparin Sodium (Lovenox) 40 mg SC 0900 [facility] Last Admin: 11/13/18 09:22 Dose: 40 mg Ferrous Sulfate (Feosol) 325 mg PO BID-[facility] Vancomycin HCl 1.25 gm/ Sodium (Chloride) 250 mls @ 166.667 mls/hr IVPB 0500, 1700 [facility] Last Admin: 11/13/18 03:59 Dose: 250 mls Potassium Chloride/Sodium Chloride (Ns 0.9% W/ 20 Meq Kcl) 1,000 ml in 1,000 mls @ 100 mls/hr IV .Q10H [facility] Last Admin: 11/13/18 09:20 Dose: 1,000 mls Meropenem 1 gm/ Device 50 mls @ 100 mls/hr IVPB Q8HR [facility] Last Admin: 11/13/18 16:07 Dose: 50 mls Levetiracetam (Keppra) 500 mg PO BID [facility] Levetiracetam (Keppra) 500 mg PO NOW [facility] Stop: 11/13/18 21:00 Last Admin: 11/13/18 12:11 Dose: 500 mg Levothyroxine Sodium (Synthroid) 50 mcg PO 0600 [facility] Miscellaneous Medication (Pharmacy To Dose) 1 each IVPB PRN PRN PRN Reason: Pharmacy to dose Ondansetron HCl (Zofran) 4 mg IVP Q6H PRN PRN Reason: Nausea/Vomiting Last Admin: 11/13/18 12:11 Dose: 4 mg Sodium Chloride (Flush - Normal Saline) 10 ml IVF Q12HR [facility] Last Admin: 11/13/18 09:22 Dose: Not Given Sodium Chloride (Flush - Normal Saline) 10 ml IVF PRN PRN PRN Reason: Saline Flush
[2018-11-13] MEDS: Ferrous Sulfate 325 MG TAB PO SCH (18:39)
[2018-11-13] MEDS: levETIRAcetam 500 MG TAB PO SCH (20:08)
[2018-11-14 04:13] LABS: #Basophils 0.1 thou/uL (0.0-0.2); #Eosinphils 0.2 thou/uL (0.0-0.7); #Lymphocytes 2.4 thou/uL (1.20-3.40); #Monocytes 0.7 thou/uL (0.11-0.59); #Neutrophils 4.7 thou/uL (1.40-6.50); %Basophils 0.7 % (0.0-1.0); %Eosinophils 2.1 % (0.0-10.0); %Lymphocytes 29.9 % (21.0-51.0); %Monocytes 8.3 % (0.0-10.0); Hemoglobin 9.2 g/dL (12.0-16.0); Mean Corpuscular HGB CONC 31.4 g/dL (32.0-36.0); Mean Corpuscular Hemoglobin 23.5 pg (27.0-31.0); Mean Corpuscular Volume 74.9 fL (78.0-98.0); Mean Platelet Volume 8.2 fL (7.4-10.4); Platelet Count 243 thou/uL (130-400); RBC Distribution Width 16.9 % (11.5-14.5); Red Blood Cell (RBC) Count 3.92 mill/uL (4.20-5.40)
[2018-11-14 04:30] LABS: Vancomycin, Trough 10.4 ug/mL
[2018-11-14 04:32] LABS: Anion Gap 10 mmol/L (10-20); BUN (Urea Nitrogen) 12 mg/dL (7.0-18.7); Calc. Creatinine Clearance 118 mL/min (70-130); Calcium 8.5 mg/dL (7.8-10.44); Carbon Dioxide 26 mmol/L (22-29); Chloride 106 mmol/L (98-107); Estimated GFR-MDRD 82; Glucose 130 mg/dL (70-105); Potassium 3.9 mmol/L (3.5-5.1); Sodium 138 mmol/L (136-145)
[2018-11-14] MEDS ORDERED: Vancomycin HCl 1.5 GM in Sodium Chloride 0.9% 250 ML 300 ML IVPB SCH (05:00)
[2018-11-14] MEDS: NS 0.9% w/ 20 MEQ KCL 1,000 ML/1,000 ML BAG IV SCH (05:09)
[2018-11-14] MEDS: MEROPENEM 1 GM/50 ML 1 GM in Premix Bag 1 BAG IVPB SCH (05:10)
[2018-11-14] MEDS: Acetaminophen 325 MG TAB PO PRN (05:14)
[2018-11-14] MEDS ORDERED: Levothyroxine Sodium 50 MCG TAB PO SCH (06:00)
[2018-11-14] MEDS: Ferrous Sulfate 325 MG TAB PO SCH (08:12)
[2018-11-14] MEDS: levETIRAcetam 500 MG TAB PO SCH (08:12)
[2018-11-14] MEDS: Enoxaparin Sodium 40 MG/0.4 ML SYRINGE SC SCH (08:12)
[2018-11-14 11:10] VITALS: BP 118/79; TEMP 97.9
[2018-11-14] MEDS ORDERED: traMADol HCl 50 MG TAB PO PRN (11:15)
[2018-11-14] MEDS ORDERED: Ciprofloxacin 500 MG TAB PO SCH ×2 (11:30→20:00)
--- NOTE | 2018-11-15 03:20 | DIS ---
DATE OF ADMISSION: 11/12/2018 DATE OF DISCHARGE: 11/14/2018 PRIMARY CARE PROVIDER: Dr. Thompson Higginbotham. DISCHARGE DIAGNOSES: 1. Sepsis. 2. Urinary tract infection with multidrug resistant Escherichia coli. CONDITION OF PATIENT ON THE DAY OF DISCHARGE: Stable. I assessed Ms. Sanchez on the day of discharge. She reports feeling better. Vital signs are stable. S1 and S2 are heard, regular. Lungs are clear to auscultation bilaterally. DISCHARGE MEDICATIONS: 1. Ferrous sulfate 325 mg 2 times a day. 2. Ciprofloxacin 500 mg 2 times a day. 3. Keppra 500 mg 2 times a day. 4. Synthroid 50 mcg daily. 5. Tramadol p.r.n. HOSPITAL COURSE: Ms. Sanchez is a pleasant 43-year-old lady who was admitted to [facility] on 11/12/2018, for sepsis secondary to urinary tract infection. She had renal ultrasound after admission, which was unremarkable. She improved with intravenous meropenem. Urine cultures grew Escherichia coli that was resistant to ampicillin, ampicillin/sulbactam, cefepime, ceftazidime, ceftriaxone, gentamicin, and trimethoprim/sulfamethoxazole, sensitive to amikacin, cefoxitin, ciprofloxacin, levofloxacin, meropenem, nitrofurantoin, and Zosyn. She is being discharged home on oral antibiotics. She is advised to follow up with her primary care provider in 3 days' time for evaluation. On the day of discharge, she has white count 8000, hemoglobin 9.2, platelet count 243,000, normal electrolytes and normal creatinine. Many thanks for allowing me to participate in your patient's care. Please feel free to contact me with any questions or concerns. DISCHARGE DESTINATION: Home. TOTAL AMOUNT OF TIME SPENT COORDINATING THIS DISCHARGE: 32 minutes. Job ID: [id number]
== END 2018-11-14 13:28 | disposition home or self-care (01) | DRG 872 ==
LOC: ERS 16:23 → T4-A 17:52
PROVIDERS: ADMIT Internal Medicine; ATTEND Internal Medicine
DX: A41.9 Sepsis, unspecified organism (principal); N39.0 Urinary tract infection, site not specified; D64.9 Anemia, unspecified; E87.6 Hypokalemia; B96.89 Other specified bacterial agents as the cause of diseases classified elsewhere; G40.909 Epilepsy, unspecified, not intractable, without status epilepticus; Z87.448 Personal history of other diseases of urinary system; Z79.899 Other long term (current) drug therapy; Z16.24 Resistance to multiple antibiotics; B96.20 Unspecified Escherichia coli [E. coli] as the cause of diseases classified elsewhere
CPT/HCPCS: 36415; 74176; 76770; 80048; 80053; 80202; 81003; 81015; 81025; 83605; 85025; 87040; 87077; 87086; 87186; 96365; 96367; J0696; J1650; J2185; J2405; J3370; J3480; J3490; J7050; Q0163

== ENCOUNTER 2021-09-23 13:32 | Outpatient (CLI) | payer MEDICARE, OTHER | END 2021-09-23 13:33 | disposition home or self-care (01) | LOC: BICMAMMO 13:32 | PROVIDERS: ATTEND Family Medicine | DX: Z12.31 Encounter for screening mammogram for malignant neoplasm of breast (principal); R07.89 Other chest pain | CPT/HCPCS: 71045; 77063; 77067 ==

== ENCOUNTER 2022-10-27 11:48 | Outpatient (CLI) | payer OTHER | END 2022-10-27 11:49 | disposition home or self-care (01) | LOC: BICMAMMO 11:48 | PROVIDERS: ATTEND Family Medicine | DX: Z12.31 Encounter for screening mammogram for malignant neoplasm of breast (principal) | CPT/HCPCS: 77063; 77067 ==